=== PATIENT | female | born 1960 | race Caucasian/White ===

== ENCOUNTER 2020-07-01 07:19 | Outpatient (CLI) | payer BC, OTHER ==
[2020-07-01 10:46] LABS: #Eosinphils 0.1 10x3/uL (0.0-0.5); #Monocytes 0.5 10x3/uL (0.0-1.1); #Neutrophils 4.1 10x3/uL (1.5-8.4); %Basophils 0.6 % (0.0-2.0); %Eosinophils 1.1 % (0.0-6.0); %Lymphocytes 26.2 % (18.0-47.0); %Monocytes 7.7 % (0.0-10.0); %Neutrophils 64.1 % (40.0-75.0); Hemoglobin 13.8 g/dL (12.0-16.0); Mean Corpuscular HGB CONC 32.9 G/DL (32.0-36.0); Mean Corpuscular Hemoglobin 28.2 PG (27.0-33.0); Mean Corpuscular Volume 85.9 fl (80.0-100.0); Mean Platelet Volume 9.5 fl (7.4-10.4); Platelet Count 308 10x3/uL (130-400); RBC Distribution Width 13.2 % (11.5-14.5); Red Blood Cell (RBC) Count 4.89 10x6/uL (3.90-5.20); White Blood Cell (WBC) Count 6.4 10x3/uL (4.5-11.0)
[2020-07-01 11:41] LABS: Anion Gap 16 mmol/L (10-20); BUN (Urea Nitrogen) 17 mg/dL (9.8-20.1); Calc. Creatinine Clearance 0 mL/min (70-130); Calcium 8.6 mg/dL (7.8-10.44); Carbon Dioxide 25 mmol/L (23-31); Chloride 104 mmol/L (98-107); Estimated GFR-MDRD 84; Glucose 90 mg/dL (80-115); Potassium 4.6 mmol/L (3.5-5.1); Sodium 140 mmol/L (136-145)
[2020-07-01 18:15] LABS: SARS-CoV-2 MS2 Positive; SARS-CoV-2 N Gene Negative; SARS-CoV-2 S Gene Negative; SARS-CoV-2 by NAA Not Detected (NotDetected); SARS-CoV-2 orf1ab Negative
== END 2020-07-01 07:20 | disposition home or self-care (01) ==
LOC: LABBT 07:19
PROVIDERS: ATTEND Surgery
DX: Z01.818 Encounter for other preprocedural examination (principal); D17.22 Benign lipomatous neoplasm of skin and subcutaneous tissue of left arm; Z20.828 Contact with and (suspected) exposure to other viral communicable diseases
CPT/HCPCS: 80048; 85025; 87635; 93005; 93010; U0003

== ENCOUNTER 2020-07-06 10:26 | Day surgery (SDC) | payer BC ==
[2020-07-02 14:41] VITALS: BMI 31.3
[2020-07-06] MEDS ORDERED: Famotidine/PF 20 mg/2ml Vial ONE (10:48)
[2020-07-06] MEDS ORDERED: Fentanyl 100 MCG/2 ML VIAL ONE (10:48)
[2020-07-06] MEDS ORDERED: Acetaminophen 500 MG TAB ONE (10:50)
[2020-07-06] MEDS ORDERED: Ketorolac Tromethamine 30 MG/ML VIAL ONE (10:50)
[2020-07-06] MEDS ORDERED: Lidocaine 2% PF 5 ML VIAL ONE (10:56)
[2020-07-06] MEDS ORDERED: Bacitracin Zinc Ointment 30 gm TUBE ONE (10:56)
[2020-07-06] MEDS ORDERED: Bupivacaine/Epinephrine 0.25% 30 ML VIAL ONE (10:56)
[2020-07-06] MEDS ORDERED: SUGAMMADEX SODIUM 200 MG/2 ML VIAL ONE (11:55)
[2020-07-06] MEDS ORDERED: Metoclopramide HCl 10 MG/2 ML VIAL ONE (12:39)
[2020-07-06] MEDS ORDERED: Rocuronium Bromide 10 MG/ML (10ML VIAL) ONE (12:39)
[2020-07-06] MEDS ORDERED: PROPOFOL 200 MG/20 ML VIAL ONE (12:39)
[2020-07-06] MEDS ORDERED: EPHEDRINE 25 MG/5 ML SYRINGE ONE (12:39)
[2020-07-06] MEDS ORDERED: Ondansetron PF 4 MG/2 ML Vial ONE (12:39)
[2020-07-06] MEDS ORDERED: Glycopyrrolate 0.2 MG/ML 5 ML SYRINGE ONE (12:39)
[2020-07-06] MEDS ORDERED: Lidocaine 1% PF 5 ML VIAL ONE (12:39)
[2020-07-06] MEDS ORDERED: Dexamethasone 20 MG/5 ML VIAL ONE (12:39)
[2020-07-06] MEDS ORDERED: PHENYLEPHRINE-NS 100 MCG/ML 10 ML SYRINGE ONE (12:39)
--- NOTE | 2020-07-06 13:40 | PDOC.OP ---
Operative Note - Operative Note Operative Note: PROCEDURE: Excision of left posterior shoulder lipoma SURGEON: Kimber Sy M.D. DATE: 07/06/2020 PREOPERATIVE DIAGNOSIS: Left posterior shoulder lipoma POSTOPERATIVE DIAGNOSIS: Left posterior shoulder lipoma HISTORY: Patient with subcutaneous mass of her left posterior shoulder most consistent with lipoma slowly growing over the years for which she desires excision for symptomatic and diagnostic purposes. FINDINGS: 7 x 4.5 x 2.5 cm lobulated lipoma PROCEDURE IN DETAIL: After informed consent was obtained and appropriate preoperative antibiotics administered the patient was taken to the operating room she was placed in supine position general tracheal anesthesia was administered. She was placed in the right lateral decubitus position and prepped and draped in standard sterile fashion. Local anesthesia was infused circumferentially around the subcutaneous mass for field block. An oblique incision was made over the long axis of the lipoma and the lobulated encapsulated lipoma dissected free of the normal surrounding fat and sent to pa thology. The wound was irrigated and hemostasis obtained using Bovie electrocautery. Additional local anesthesia was infused for postoperative pain control. The subcutaneous tissues were reapproximated with interrupted [id number] 3-0 Monocryl sutures. The skin was then closed with a running subcuticular 4-0 Monocryl suture Dermabond dressings were placed and the patient was extubated and taken to recovery in good condition. Estimate blood loss was minimal. There were no complications. Specimen is lipoma.
== END 2020-07-06 15:08 | disposition home or self-care (01) ==
LOC: SDC 10:26
PROVIDERS: ATTEND Surgery
PROC: 0JBF0ZZ Excision of Left Upper Arm Subcutaneous Tissue and Fascia, Open Approach (ICD-10-PCS; principal; 2020-07-06)
DX: D17.22 Benign lipomatous neoplasm of skin and subcutaneous tissue of left arm (principal); F41.9 Anxiety disorder, unspecified; E78.5 Hyperlipidemia, unspecified; I10 Essential (primary) hypertension; M19.90 Unspecified osteoarthritis, unspecified site; Z79.82 Long term (current) use of aspirin; Z79.899 Other long term (current) drug therapy; Z87.891 Personal history of nicotine dependence; Z88.8 Allergy status to other drugs, medicaments and biological substances
CPT/HCPCS: 88304; J0690; J1100; J1885; J2001; J2405; J2704; J2765; J3010; S0028

== ENCOUNTER 2020-12-15 10:30 | Outpatient (CLI) | payer BC | END 2020-12-15 10:31 | disposition home or self-care (01) | LOC: SCSRAD 10:30 | PROVIDERS: ATTEND Family Medicine | DX: M54.16 Radiculopathy, lumbar region (principal); M43.16 Spondylolisthesis, lumbar region | CPT/HCPCS: 72100 ==

== ENCOUNTER 2022-10-31 13:27 | Outpatient (CLI) | payer BC | END 2022-10-31 13:28 | disposition home or self-care (01) | LOC: SCSRAD 13:27 | PROVIDERS: ATTEND Family Medicine | DX: M54.50 Low back pain, unspecified (principal); M47.816 Spondylosis without myelopathy or radiculopathy, lumbar region; M89.38 Hypertrophy of bone, other site | CPT/HCPCS: 72110 ==

== ENCOUNTER 2025-05-19 13:00 | Outpatient (CLI) | payer MEDICARE | END 2025-05-19 13:01 | disposition home or self-care (01) | LOC: SCSRAD 13:00 | PROVIDERS: ATTEND Family Medicine | DX: M54.50 Low back pain, unspecified (principal); M79.641 Pain in right hand; M25.551 Pain in right hip; M79.631 Pain in right forearm; M47.816 Spondylosis without myelopathy or radiculopathy, lumbar region; Z91.81 History of falling | CPT/HCPCS: 72110 ==